=== PATIENT | male | born 1955 | race Caucasian/White ===

== ENCOUNTER → 2018-02-06 | Outpatient (CLI) | payer OTHER ==
[2018-02-07 12:35] LABS: Stool Occult Bld Immuno 1 Negative (NEGATIVE); Stool Occult Bld Immuno 2 Negative (NEGATIVE)
== END ==
LOC: OLS 19:00 → LAB SHORT 19:00
PROVIDERS: Internal Medicine Gastroenterology
DX: Z13.818 Encounter for screening for other digestive system disorders (principal); Z12.11 Encounter for screening for malignant neoplasm of colon
CPT/HCPCS: G0328

== ENCOUNTER 2020-08-06 11:08 | Day surgery (SDC) | payer BC ==
[~2020-08-06] VITALS: Ht 175.3 cm; Wt 75.2 kg
[~2020-08-06 11:08] MED LIST: ACET500 PO
--- NOTE | 2020-08-06 16:09 | NUR ---
PT ARRIVED FROM PACU. AWAKE AND ALERT. VSS ON RA. PRT PROVIDED COFFEE. AWAITING SON TO ARRIVE. PT MEDICATED WITH NORCO ORDERED FOR MIRELES 11/29. Ambulatory in Day Surgery Discharge instructions reviewed with patient. Patient verbalizes understanding. Copy given to patient to take home. Dressing to procedure site clean, dry, intact with no visible drainage, swelling, erythema or bruising noted. Patient States Post-Procedure ride home has been arranged.
--- NOTE | 2020-08-06 16:44 | NUR ---
Discharged via wheelchair to private car for ride home.
--- NOTE | 2020-08-07 13:19 | NUR ---
08/07/20 1319 Terra Mccurdy VERIFICATIONS: EDIT CHART.
== END 2020-08-06 22:59 | disposition home or self-care (01) ==
LOC: ORSCMMR 11:08
PROVIDERS: Orthopaedic Surgery
PROC: 0PS904Z Reposition Right Clavicle with Internal Fixation Device, Open Approach (ICD-10-PCS; principal; 2020-08-06 12:30)
DX: S42.021A Displaced fracture of shaft of right clavicle, initial encounter for closed fracture (principal)
CPT/HCPCS: 73000; A9270-GY; C1713; J0690; J1885; J2250; J2405; J3010; J7120

== ENCOUNTER 2022-04-12 09:22 | Day surgery (SDC) | payer MEDICARE ==
[~2022-04-12] VITALS: Ht 175.3 cm; Wt 67.8 kg
== END 2022-04-12 11:37 | disposition home or self-care (01) ==
LOC: ORSCSDS 09:22
DX: Z12.11 Encounter for screening for malignant neoplasm of colon (principal); Z86.010 Personal history of colon polyps; D12.0 Benign neoplasm of cecum; K63.5 Polyp of colon
CPT/HCPCS: 88305; J2704; J7120